=== PATIENT | male | born 1975 | race Caucasian/White ===

== ENCOUNTER 2016-06-27 13:10 | Emergency (ER) | payer OTHER ==
[~2016-06-27] VITALS: Ht 162.6 cm; Wt 81.8 kg
[~2016-06-27 13:10] MED LIST: ANAPROX DS550 M1 PO; HYDROCODON-ACE1 EAC7 PO; MOTRIN800 MG PO; NAPROSYN500 MG PO; PERCOCET 5/31 TABLET PO
[2016-06-27] MEDS ORDERED: FLEXERIL10 MG PO (14:11)
[2016-06-27] MEDS ORDERED: NAPROSYN500 MG PO (14:11)
[2016-06-27 15:04] VITALS: BP 150/81
== END 2016-06-27 15:05 | disposition home or self-care (01) ==
LOC: EME 13:10
DX: M54.12 Radiculopathy, cervical region (principal); M62.838 Other muscle spasm; V43.62XA Car passenger injured in collision with other type car in traffic accident, initial encounter
CPT/HCPCS: 72040; 99281; 99284; J1885